=== PATIENT | male | born 1940 | race Caucasian/White ===

== ENCOUNTER 2017-03-20 01:52 | Inpatient (IN) | payer OTHER, MEDICARE ==
[~2017-03-20] VITALS: Ht 165.1 cm; Wt 83.9 kg
[~2017-03-20 01:52] MED LIST: AMLODIPINE BESYL5 M1 PO; ASPIRIN EC81 M1 PO
--- NOTE | 2017-03-20 09:01 | RADIOLOGY REPORT ---
EXAMINATION: XR LUMBAR SPINE CLINICAL INFORMATION: T10-T12 laminectomy and fusion. L4-L5 laminectomy. COMPARISON: CT images of lumbar spine, 02/07/2017 TECHNIQUE: Intraoperative crosstable lateral radiograph of the lumbar spine was obtained. FINDINGS: Multilevel degenerative disc disease of the lumbar spine. There is minimal degenerative retrolisthesis of L3 on L4. The vertebral body heights are generally well preserved. [place] are positioned posterior to the spinous processes of L1 and L4. IMPRESSION: Intraoperative lateral radiograph of lumbar spine shows needles marking the L1 and L4 spinous processes.
--- NOTE | 2017-03-20 09:45 | RADIOLOGY REPORT ---
EXAMINATION: XR LUMBAR SPINE CLINICAL INFORMATION: T10-T12 laminectomy and fusion. L4-L5 laminectomy. COMPARISON: Prior intraoperative radiograph from 03/20/2017. TECHNIQUE: Single lateral crosstable radiograph of lumbar spine was obtained. FINDINGS: Multilevel degenerative disc disease of the thoracolumbar spine. Soft tissue retractor is located posterior to T10-T11, and the tip of a surgical instrument projects posterior to T12. Within the lower lumbar spine, surgical instruments appear to be directed to the L4 lamina. IMPRESSION: Intraoperative lumbar radiograph (#2 in series) was acquired during lower thoracic and lower lumbar surgery.
--- NOTE | 2017-03-20 12:53 | Operative Report ---
Operative/Inv Procedure Report Surgery Date: 03/20/17 Name of Procedure: T10 T11 T12 laminectomy, T10 through T12 posterior lateral arthrodesis utilizing autologous bone graft, T10 through T12 posterior lateral segmental titanium instrumentation utilizing connie titanium stereotactically. Pre-Operative Diagnosis: Thoracic spondylosis thoracic spondylolisthesis and spinal stenosis myelopathy Post-Operative Diagnosis: Same Estimated Blood Loss: 550cc Surgeon/Senior Qa Analyst: GRAYSON RIVERS MD and STEPHANIE ARIAS,RAJ Darby Anesthesia: general endotracheal tube Operative/Procedure Note Note: Patient was brought into the operating room and after undergoing endotracheal intubation Dolan catheterization Venodyne's were placed on both lower extremities. The patient was placed prone on a Alpesh frame with all bony prominences well-padded the back was kept flat. The back was washed with alcohol and Betadine it was prepped with Betadine solution and draped in usual sterile fashion. X-ray was used for localization. An incision was made between the T10 and T12 vertebral developed down through the length subcutaneous teeniest tissues. The paraspinal muscles were mobilized out laterally to the level of the transverse processes bilaterally. After a confirmatory x-ray the Misonix bone scalpel was utilized to perform the laminectomies. 2 troughs were drilled out on either side of T10-T11 and top of T12 lamina. The lamina were now removed upwards with no downward pressure upon the dura. The lamina were cleared of all soft tissue morcellized and later use in the arthrodesis. The procedure was performed under elective physiological monitoring and did with the polysomnography technician the room throughout the case. No downward advance in monitoring were accounted. After a wide decompression the bone was morcellized and used for the arthrodesis. The decorticated surfaces posterolaterally the bone was placed from T10 to T12. A stereotactic post was placed at the T8's spinous process and the stereotactic coordinates were now obtained utilizing the O arm. Under stereotactic guidance the pedicle screws were accessed with Connie titanium instrumentation. 0.5 mm diameter screws were utilized. A 50 mm length screws were utilized at T12, 40 mm at the 11, and 45 mm at T 10. The screws were stimulated and found to stimulate above 30 mA. Copious amounts of bacitracin irrigation were utilized. Vanco powder was placed in the wound. A round large LUCERO was placed and removed a separate stab incision laterally. The paraspinal muscles and fascia were reapproximated utilizing interrupted 0 Vicryls, everted Vicryl subcutaneous teeniest tissues jim for the skin.
--- NOTE | 2017-03-20 12:57 | Operative Report ---
Operative/Inv Procedure Report Surgery Date: 03/20/17 Name of Procedure: L2 L3 L4 L5-S1 laminectomies bilateral dat-facetectomies foraminotomies. Pre-Operative Diagnosis: Lumbar spondylosis lumbar stenosis Post-Operative Diagnosis: Same Estimated Blood Loss: 550cc Surgeon/Certification Officer: GRAYSON RIVERS MD and RAJ BROWN MD Anesthesia: general endotracheal tube Operative/Procedure Note Note: Patient was brought to the operating room and after undergoing endotracheal intubation Dolan catheterization Venodyne's were placed over both lower extremities and the patient was placed on a Alpesh frame back was kept flat all bony prominences well-padded. Please note this is the first of 2 procedures that were performed performed the same day on this patient. The patient was back was prepped with Betadine and draped in usual sterile fashion. An incision was made between the L2 and the S1 vertebral developed down through the underlying subcutaneous teeniest tissues the paraspinal muscles were mobilized out to the level of the facet joints. After confirmatory x-ray the Orabrushonix bone scalpel was utilized to drill 2 troughs on either side of the lamina removing the inferior L2 lamina L3 lamina L4 lamina and L5 lamina completely as well as the top of the S1 lamina. The lamina was removed bilaterally such that dat- facetectomies were performed as well as the foramina were now undermined performed at all levels laterally. Copious amounts of irrigation were used. A drain was placed and removed a separate stab incision superiorly. The paraspinal muscles were reapproximated using interrupted 0 Vicryls, for the muscle and fascia Oh subcutaneous teeniest tissues and jim for the skin. The patient was then to proceed with the second procedure the thoracic decompression and fusion with fibular dictating a separate note.
--- NOTE | 2017-03-20 13:22 | Operative Report ---
Operative/Inv Procedure Report Surgery Date: 03/20/17 Name of Procedure: 1. Decompressive lumbar laminectomy L2-S1, bilateral multilevel foraminotomies L2-3, L3 4, L4 5, L5-S1 Pre-Operative Diagnosis: 1. L2-S1 lumbar spinal stenosis with claudication Post-Operative Diagnosis: Same Estimated Blood Loss: 550cc Surgeon/Quality Assurance Supervisor Final: STEPHANIE ARIAS,Bob Lew M.D. Anesthesia: general endotracheal tube Monitors: Neurophysiologic monitoring IV Fluids: 3.1 L crystalloid +305 mL Cell Saver Urine Output: 200 mL via Dolan Drains: medium LUCERO Specimens: None Complications: None Condition: Stable Operative Indication: Patient is a 76-year-old gentleman who presents with claudication of the lower extremities and increasing paresthesias. Imaging identifies multilevel severe lumbar stenosis from L2 to S1 secondary to hypertrophic facet and ligamentous changes and broad posterior disc osteophyte complexes at each level. He failed conservative treatment and now presents for surgical decompression. Operative/Procedure Note Note: Patient was taken the operating room. After appropriate patient identification, neurophysiologic monitoring leads were placed and baseline recordings were obtained. Patient underwent the smooth induction of general endotracheal anesthesia without incident. A Dolan catheter was sterilely inserted. DVT prophylaxis utilized throughout the case. Patient was given 2 g of IV Preoperative Prophylaxis. His and Lines Secured Patient Was Carefully Turned Prone on the Alpesh Frame Taking Care to Ensure That All Pressure Points Were Well-Padded. Lumbar Region Was Widely Prepped and Draped Usual Sterile Fashion Using Povidone Iodine Solution. A Vertical Midline Skin Incision Was Marked and Infiltrated with Local Anesthetic. A Lateral Lumbar X-Ray Obtained to Confirm levels. Skin incision was made with a 10 blade knife from L2 to the sacrum in the midline. The Bovie was used to divide the subcutaneous tissue. The lumbodorsal fascia was incised with the Bovie and a subperiosteal dissection lumbar paravertebral muscles was performed bilaterally with the Bovie exposing underlying spinous processes and facet joints from L2 to the sacrum. Facets were noted to be markedly hypertrophic bilaterally at all levels. A marker was placed at L5 and intraoperative x-ray was obtained to confirm this to be the correct level. With correct levels verified, we then proceeded perform a laminectomy of the inferior half of L2, all of L3, L4, L5, and the rostral aspect of S1 using a combination of the bone scalpel and Kerrison rongeurs. Thickened ligamentum flavum was carefully stripped with Kerrison rongeurs exposing the underlying thecal sac. Medial facetectomies were completed bilaterally at each level and foraminotomies were performed with Kerrisons until the exiting roots were well decompressed at L2-3, L3 4, L4 5, and L5-S1 bilaterally. The thecal sac was nicely decompressed throughout. The wound was copiously irrigated. Meticulous hemostasis was achieved using FloSeal in the epidural space and wax on the cut bone surfaces. 1 g of IV vancomycin was placed over the cut muscle and soft tissue surfaces. 10 mL of long-acting local anesthetic was infiltrated into the paraspinal muscle did the dural sac was gently covered with thrombin-soaked Gelfoam and we began wound closure. A medium LUCERO drain was placed into the wound and secured to the skin with a 2-0 nylon suture. The deep muscle was reapproximated with interrupted 0 Vicryl suture. The lumbodorsal fascia was reapproximated interrupted 0 Vicryl suture. The subcutaneous tissue was closed in layers with interrupted 2-0 Vicryl suture and the skin was closed with jim. The was cleaned and dried. Bacitracin and a sterile occlusive dressing was placed. Patient remained neurophysiologic least stable throughout the case. Findings: Tight stenosis L2-S1 Discharge Disposition: PACU
--- NOTE | 2017-03-20 13:31 | Operative Report ---
Operative/Inv Procedure Report Surgery Date: 03/20/17 Name of Procedure: T10-T12 decompressive thoracic laminectomy and posterior lateral arthrodesis with Connie pedicle screws and rods, autograft, bone marrow aspirate through distinct surgical incision Use of O arm navigation Pre-Operative Diagnosis: T10-T12 spinal stenosis with myelopathy, T11 12 spondylolisthesis Post-Operative Diagnosis: Same Estimated Blood Loss: 300cc Surgeon/Summer Counselor: STEPHANIE ARIAS,Bob Lew MD Anesthesia: general endotracheal tube Monitors: Neurophysiologic monitoring IV Fluids: Replacement crystalloid Implants: [place] Urine Output: Via Dolan Drains: Medium LUCERO Complications: None Condition: Stable Operative Indication: Patient is a 76-year-old gentleman who presents with thoracic myelopathy. He is noted to have a high-grade stenosis from T10 to T12 with focal abnormal T2 signal in the cord at T11-T12 where he is also noted to have a degenerative spondylolisthesis. I increasing paresthesias to the lower extremities and difficulty ambulating and now presents for surgical decompression and instrumented stabilization. Operative/Procedure Note Note: Patient was taken to the operating room. After appropriate patient identification, neurophysiologic monitoring leads were placed and baseline recordings were obtained the patient then underwent the smooth induction of general endotracheal anesthesia without incident. A Dolan catheter was sterilely inserted. DVT prophylaxis was utilized throughout the case. Patient was given 2 g of IV and preoperative prophylaxis. Tubes and lines secured was carefully turned to the prone position on the Alpesh table taking care to ensure that all pressure points were well-padded. The practical lumbar spine was widely prepped and draped usual sterile fashion using povidone iodine solution. A vertical midline skin incision was marked from T10 to L1 after x- ray localization. Skin was infiltrated with local anesthetic. Skin incision was made with a 10 blade knife. Dissection was carried down through subcutaneous tissue with the Bovie. The midline fascia was incised and a subperiosteal dissection of the thoracic paravertebral muscles was performed bilaterally exposing the spinous processes lamina and the lateral mass bilaterally. A [place] was placed at the presumed level of T12 and intraoperative localizing x-ray was obtained and confirmed the correct level. With the correct level verified, we proceeded with the laminectomy from T10 to T12 using a combination of bone scalpel and Kerrison rongeurs. All bone was saved and passed to the back table for arthrodesis. Medial facetectomies were performed bilaterally. Thickened ligamentum flavum was stripped and a complete decompression of the thecal sac was accomplished. Once the decompression was completed, hemostasis is achieved. The O arm reference arc was attached to the to the 8 spinous process and the O arm was brought into play. Reference AP and lateral x-rays followed by a spin of the O arm was performed. Image acquisition was obtained and confirmed. Using O arm navigation, we then proceeded with placement of the instrumentation. Pedicle screws were placed at T10, T11, and T12 bilaterally under live navigation. Entry sites were marked with the drill. Pedicles were traversed with a gearshift, sounded with a ball-tipped probe, and screws placed without complication. 5.5 x 45 mm Connie titanium screws were placed and T10 bilaterally, 5.5 x 40 mm screws in T11, and 5.5 x 50 mm screws placed bilaterally and T12. With all screws in position, they were stimulated with thresholds greater than 35 mA at all 6 locations. A second spin of the O arm was obtained and confirmed excellent position of all of the screws. We then decorticated the lateral masses bilaterally and morcellated autograft mixed with bone marrow aspirate from the pedicle screw holes was then packed from T10 to T12 bilaterally. 60 mm titanium rods were top loaded and locking caps placed. The screws were finally tightened with an antitorque device. The wound was copiously irrigated. Hemostasis is achieved with FloSeal and bone wax. The dural sac was gently covered with thrombin-soaked Gelfoam patties. Myosin patter was placed along the cut muscle and soft tissue surfaces. Long- acting local anesthetic was placed in the muscle and we began wound closure. A medium LUCERO drain was placed in the wound and secured to the skin with a 2-0 nylon suture. Was reapproximated interrupted 0 Vicryl suture. The fascia was closed with interrupted 0 Vicryl suture and the subcutaneous tissue closed in layers with a 2-0 Vicryl suture. The skin was closed with jim. The wounds clean and dried. Bacitracin and a sterile occlusive dressing was placed. Patient was returned to the supine position, awakened, extubated and taken to PACU in stable condition. He was noted to be moving all extremities at the completion the case. All sponge, needle, and injuring counts are correct at the completion of procedure 3. Neurophysiologic monitoring was stable throughout the case.
--- NOTE | 2017-03-20 14:44 | RADIOLOGY REPORT ---
EXAMINATION: XR THORACIC SPINE CLINICAL INFORMATION: T10 - T12 laminectomy and fusion COMPARISON: CT lumbar spine, 02/07/2017 TECHNIQUE: Intraoperative frontal and lateral fluoroscopic images centered on the thoracolumbar or junction were acquired. Also, intraoperatively CT images through the thoracolumbar region were obtained. NUMBER OF SAVED FLUOROSCOPIC IMAGES AND FLUORO TIME: 2 images. 6.64 sec exposure time. DLP: 449.68 mGy-cm FINDINGS: Please refer to the operative report. Intraoperative CT images show laminectomy defects of T10, T11 and T12 with postoperative soft tissue gas and soft tissue edema posterior to the spine. IMPRESSION: Intraoperative CT and fluoroscopic imaging was utilized during T10-T12 laminectomy/fusion.
[2017-03-20 15:00] VITALS: BP 130/62
--- NOTE | 2017-03-20 15:37 | PN- Student ---
ESTRELLA BURR 03/20/17 1529: Subjective Subjective: POC: Patient comfortable, denies nausea/vomiting, SOB, chest pain, dizziness. Reports 6/10 pain in right side of his back. Objective Objective: Vitals: BP: 130/80 SpO2: 96% HR: 56 General: awake, alert, oriented Lungs: CTAB, no wheeze/rhonchi/rales, good air movement bilaterally Heart: S1 S2, RRR, no M, R, G Abdomen: soft, non-distended, non-tender Extremities: gross motor/sensory function in tact, distal pulses palpable, no peripheral edema, no calf tenderness bilaterally. LUCERO x2 - both with about 25 cc serosanguanous drainage Dressing clean/dry/intact Chantal-incisional tenderness along thoracic/lumbar spine Amb[place] in place with about 50cc clear yellow urine in bag Assessment/Plan Assessment: 76 y/o male POD #0 T10-12 laminectomy and fusion with pedicle screws and lillian allograft and L2-L5 laminectomy. PMH significant for hypertension. Recovering as expected with 6/10 pain. Plan: Diet: regular Pain: continue current pain regimen, dilaudid PRN for breakthrough DVT ppx: ALPS, subq heparin Strict I's and O's Incentive Spirometry Continue ALPS Monitor drainage output VOLODYMYR STRONG 03/20/17 1717: Objective Results Results: Microbiology 03/20 0805 URINE ROUT: Urine Culture - RECD Resident Review Statement Other Findings: Agree with above PAS note. POD0 sp T10-12 lami/fusion, L4-5 lami, with appropriate postop pain, otherwise stable. C/O incisional pain, denies leg pain. No n/v/cp/sob. some residual numbness proximal legs. AVSS, 93% on 3LNC JPx2, each with approx 75cc sanguinous drainage incision: dressing cdi, ttp at incisions. ext: + dp +pt bl, caves soft nt bl, gross sensate intact bl feet, decreased sensation proximal thighs, +dorsi/plantar flexion bl P: prn pain meds OOB as tolerated. dc ambrose in am home meds reg diet as tolerated, hl once tolerates titrate o2 will dw attending
--- NOTE | 2017-03-20 15:51 | Admission Core Measures ---
Admission Meds I reviewed the following Meds: Current Medications Sig/Alesha Start time Last Medication Dose Stop Time Status Admin Acetaminophen 650 MG Q4P PRN 03/20 1545 AC (Tylenol) Amlodipine Besylate 5 MG DAILY 03/21 1000 AC (Norvasc) Bisacodyl 10 MG DAILY PRN 03/20 1545 AC (Dulcolax Supp) Cefazolin Sodium 2,000 MG ONCE 03/20 0000 NR (Kefzol-Ancef Inj) 03/20 2359 Diazepam 5 MG Q6P PRN 03/20 1545 AC (Valium) Docusate Sodium 100 MG TID 03/20 1600 AC (Colace) Famotidine 20 MG BID 03/20 2200 AC (Pepcid) Heparin Sodium 5,000 UNIT Q8 03/21 0600 AC (Porcine) Hydromorphone HCl 2 MG Q4-6 PRN PRN 03/20 1545 AC (Dilaudid) Hydromorphone HCl 4 MG Q4-6 PRN PRN 03/20 1545 AC (Dilaudid) Hydromorphone HCl 1 MG Q4-6 PRN PRN 03/20 1530 AC (Dilaudid) Ketorolac 15 MG Q6P PRN 03/20 1530 AC Tromethamine (Toradol) Ondansetron HCl 4 MG Q6P PRN 03/20 1545 AC (Zofran) Senna 374 MG AT BEDTIME NEED.. 03/20 1545 AC (Senokot) Sodium Chloride 1,000 ML Q12H 03/20 1545 AC (Normal Saline 0.9%) 03/21 1544 Trimethobenzamide HCl 200 MG Q6P PRN 03/20 1545 AC (Tigan) Zolpidem Tartrate 2.5 MG AT BEDTIME NEED.. 03/20 1545 AC (Ambien) Acute Coronary Syndrome Inclusion Criteria ACS Diagnosis No Inpatient Core Measures LDL Reminder: If No, please order W/I first 24hr of stay Congestive Heart Failure Inclusion Criteria CHF Diagnosis No Cerebrovascular accident Inclusion Criteria CVA/TIA Diagnosis No Inpatient Core Measures Bedside Swallow Eval Reminder: If BSE failed, place ST order Antithrombotic Reminder: Order Antithrombotic Medication by end of day 2 Antithrombotic Reminder: Document Reason Antithrombotic Not ordered by end of day 2 AFIB/Flutter Reminder: If Present, add to problem list AFIB/Flutter Reminder: Order Anticoag Medication for pts with AFIB/Flutter Atherosclerosis Reminder: If Present, add to problem list LDL Reminder: If No, please order W/I first 24hr of stay PT Order Reminder: If No, please order Venous thromboembolism Inpatient Core Measures VTE Risk Factors: [facility] d/t No contraindications No VTE Pharm Prophylaxis d/t No contraindications Inclusion Criteria - Per Current guidelines, there needs to be overlap - treatment for the first 5 days of Warfarin therapy. - Parenteral Anticoagulation (IV or SC) needs to be - given along with Warfarin therapy. VTE Diagnosis No VTE Type NONE VTE Confirmed by (Test) NONE Problem List As ranked by this Provider includes Assessment & Plan 1. Back pain HOME MEDS Home Med List Amlodipine Besylate 5 MG TABLET 1 TAB PO DAILY HTN (Reported) Aspirin (Ecotrin*) 81 MG TABLET.DR 1 TAB PO DAILY PROPHO (Reported)
[2017-03-20 17:00] VITALS: BP 122/76
[2017-03-20 19:10] VITALS: BP 124/88
[2017-03-20 21:04] VITALS: BP 130/74
[2017-03-21 01:02] VITALS: BP 120/60
[2017-03-21 05:05] VITALS: BP 132/86
--- NOTE | 2017-03-21 07:04 | PN- Neurosurgical ---
Subjective Subjective: Pt doing well without complaints this am. Pain well controlled. Objective Vital Signs and I&Os Vital Signs Date Time Temp Pulse Resp B/P B/P Pulse O2 O2 Flow FiO2 Mean Ox Delivery Rate 03/21 0505 98.2 80 20 132/86 97 Nasal 2.0L Cannula 03/21 0102 98.2 82 20 120/60 97 Nasal 2.0L Cannula 03/21 0000 95 Nasal 2.0L Cannula 03/20 2153 Nasal 2.0L Cannula 03/20 2104 98.0 90 20 130/74 95 Nasal Cannula 03/20 1910 98.2 88 20 124/88 95 Nasal Cannula 03/20 1700 97.4 72 16 122/76 94 Nasal 2.0L Cannula 03/20 1600 93 Nasal 3.0L Cannula 03/20 1500 97.4 67 20 130/62 93 Nasal 3.0L Cannula Intake & Output 03/21 0800 03/21 0000 03/20 1600 03/20 0800 03/20 0000 03/19 1600 Intake Total 1120 1180 Output Total 320 680 Balance 800 500 Intake, IV 640 640 Intake, Oral 480 540 Output, 120 330 Drainage Output, Urine 200 350 Patient 83.915 kg Weight Weight Reported by Patient Measurement Method Physical Exam: Pt AF, VSS awake and alert motor exam bilat LE normal, sensory with residual numbness in ant thighs bilat, better distally inicision with 120cc in JPs overnight, dressing with min serosanguinous staining , flat using IS at bedside Current Medications: Current Medications Sig/Alesha Start time Last Medication Dose Route Stop Time Status Admin Acetaminophen 650 MG Q4P PRN 03/20 1545 AC PO Acetaminophen 1,000 MG .STK-MED ONE 03/20 704 DC IV 03/20 705 Amlodipine Besylate 5 MG DAILY 03/21 1000 AC PO Bisacodyl 10 MG DAILY PRN 03/20 1545 AC LA Cefazolin Sodium 2 GM Q8H 03/20 1700 AC 03/21 N/A 1 UNIT IV 03/23 0129 0036 Cefazolin Sodium 2,000 MG ONCE 03/20 0000 DC IV 03/20 2359 Dexamethasone 8 MG .STK-MED ONE 03/20 705 DC IM 03/20 07 Diazepam 5 MG Q6P PRN 03/20 1545 AC PO Docusate Sodium 100 MG TID 03/20 1600 AC 03/20 PO 2121 Famotidine 20 MG BID 03/20 2200 AC 03/20 PO 212 Fentanyl Citrate 250 MCG .STK-MED ONE 03/20 07 DC IM 03/20 07 Heparin Sodium 5,000 UNIT Q8 03/21 0600 AC 03/21 (Porcine) SC 0457 Hydromorphone HCl 2 MG Q4-6 PRN PRN 03/20 1545 AC PO Hydromorphone HCl 4 MG Q4-6 PRN PRN 03/20 1545 AC PO Hydromorphone HCl 1 MG Q4-6 PRN PRN 03/20 1530 AC 03/21 IV 0457 Hydromorphone HCl 2 MG .STK-MED ONE 03/20 704 DC IM 03/20 07 Ketorolac 15 MG Q6P PRN 03/20 1530 AC 03/21 Tromethamine IV 0458 Midazolam HCl 2 MG .STK-MED ONE 03/20 704 DC IM 03/20 07 Ondansetron HCl 4 MG Q6P PRN 03/20 1545 AC IV Ondansetron HCl 4 MG .STK-MED ONE 03/20 705 DC IM 03/20 07 Remifentanil 4 MG .STK-MED ONE 03/20 705 DC IV 03/20 07 Senna 374 MG AT BEDTIME NEED.. 03/20 1545 AC PO Sodium Chloride 1,000 ML Q12H 03/20 1545 AC 03/21 IV 03/21 1544 0036 Trimethobenzamide HCl 200 MG Q6P PRN 03/20 154 AC IM Zolpidem Tartrate 2.5 MG AT BEDTIME NEED.. 03/20 154 AC PO Assessment/Plan Assessment/Plan Pt POD1 s/p thoracic lami and fusion T10-12 and lumbar lami L2-S1 and doing well. Plan: -OOB with brace -cont JPs until less than 50cc per each per shift, should record each separately -cont abx until drains out -PT -ADAT -dc ambrose, BO prn -dc planning - will need STR Core Measures/Miscellaneous Venous Thromboembolism VTE Risk Factors: Age > 40 VTE Contraindications: No Contraindications VTE Diagnosis: No VTE Type: NONE VTE Confirmed by (Test): NONE Beta Tee Is Beta Tee a Home Med? No Antibiotics Is Patient on Antibiotics? 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
[2017-03-21 08:45] LABS: ABSOLUTE BASOPHIL COUNT 0 /CUMM (0.0-0.2); ABSOLUTE EOSINOPHIL COUNT 0 /CUMM (0.0-0.7); ABSOLUTE GRANULOCYTE CT 9.6 /CUMM (1.4-6.5); ABSOLUTE LYMPH COUNT 0.7 /CUMM (1.2-3.4); ABSOLUTE MONOCYTE COUNT 0.7 /CUMM (0.10-0.60); BASOPHIL % 0.1 % (0.0-2.0); EOSINOPHIL % 0 % (0-5); HEMATOCRIT 33.8 % (42-52); MEAN CORPUSCULAR HGB 28.9 PG (27.0-31.0); MEAN CORPUSCULAR HGB CONC 34.1 G/DL (33.0-37.0); MEAN CORPUSCULAR VOLUME 84.9 FL (80.0-94.0); MEAN PLATELET VOLUME 8.3 FL (7.4-10.4); PLATELET COUNT 163 /CUMM (130-400); RBC DISTRIBUTION WIDTH 14.3 % (11.5-14.5); RED BLOOD CELL CT 3.98 /CUMM (4.70-6.10); WHITE BLOOD CELL COUNT 11.1 /CUMM (4.8-10.8)
[2017-03-21 09:00] VITALS: BP 120/76
[2017-03-21 09:50] LABS: GRANULOCYTE % 87.1 % (42.2-75.2)
[2017-03-21 15:29] VITALS: BP 126/72
[2017-03-21 19:40] VITALS: BP 120/70
[2017-03-21 21:55] VITALS: BP 122/80
[2017-03-22 02:00] VITALS: BP 118/76
[2017-03-22 06:00] VITALS: BP 126/78
--- NOTE | 2017-03-22 07:46 | PN- Orthopedic ---
See Addendum Subjective Subjective: some back soreness, improved from yesterday. numbness ant thighs persists but improved. no n/v/cp/sob. +flatus, no bm. +voids. manuel diet Objective Vital Signs and I&Os Vital Signs Date Time Temp Pulse Resp B/P B/P Pulse O2 O2 Flow FiO2 Mean Ox Delivery Rate 03/22 0600 99.1 87 18 126/78 91 Room Air 03/22 0200 98.8 83 18 118/76 92 Room Air 03/21 2155 99.0 82 18 122/80 91 03/21 1940 98.5 85 18 120/70 91 / 1529 98.3 76 20 126/72 91 03/21 1454 Room Air 03/21 0900 98.0 73 16 120/76 93 Room Air 03/21 0834 98.0 73 16 120/76 Intake & Output 03/22 0800 03/22 0000 03/21 1600 03/21 0800 03/21 0000 03/20 1600 Intake Total 350 302 235 5811 1180 Output Total 1537 704 3616 320 680 Balance -705 -200 -185 800 500 Intake, IV 150 300 640 640 Intake, Oral 200 250 600 480 540 Output, 205 160 120 330 Drainage Output, Urine 850 450 925 200 350 Patient 185 lb Weight Weight Reported by Patient Measurement Method LUCERO#1: 110/8hr, 275/24hr LUCERO#2: 95/8hr, 210/24hr UO: void 450 since 6am Physical Exam: GEN: NAD CARD: s1s2 RRR PULM: CTAB ABD: soft nt back/ext: incisons cdi, JPx2 w serosang, decreased sensation bl anterior thighs, +dorsi/plantar flexion bl, +pedal pulses, calves soft nt Current Medications: Current Medications Sig/Alesha Start time Last Medication Dose Route Stop Time Status Admin Acetaminophen 650 MG Q4P PRN 03/20 1545 AC PO Amlodipine Besylate 5 MG DAILY 03/21 1000 AC 03/21 PO 0834 Bisacodyl 10 MG DAILY PRN 03/20 1545 AC CA Cefazolin Sodium 2 GM Q8H 03/20 1700 AC 03/22 N/A 1 UNIT IV 03/23 0129 0102 Diazepam 5 MG Q6P PRN 03/20 1545 AC 03/21 PO 1413 Docusate Sodium 100 MG TID 07/10 1600 AC 03/21 PO 2057 Famotidine 20 MG BID 03/20 2200 AC 03/21 PO 2057 Heparin Sodium 5,000 UNIT Q8 03/21 0600 AC 03/22 (Porcine) SC 0523 Hydromorphone HCl 2 MG Q4-6 PRN PRN 03/20 1545 AC PO Hydromorphone HCl 4 MG Q4-6 PRN PRN 03/20 1545 AC 03/22 PO 0523 Hydromorphone HCl 1 MG Q4-6 PRN PRN 03/20 1530 AC 03/21 IV 0457 Ketorolac 15 MG Q6P PRN 03/20 1530 AC 03/21 Tromethamine IV 0458 Ondansetron HCl 4 MG Q6P PRN 03/20 154 AC IV Patient Medication 1 ED .STK-MED ONE 03/21 1420 DC Teaching ED 03/21 1421 Senna 374 MG AT BEDTIME NEED.. 03/20 1545 AC PO Sodium Chloride 1,000 ML Q12H 03/20 1545 DC 03/21 IV 03/21 1544 0036 Trimethobenzamide HCl 200 MG Q6P PRN 03/20 1545 AC IM Zolpidem Tartrate 2.5 MG AT BEDTIME NEED.. 03/20 1545 AC PO Assessment/Plan Assessment/Plan A: POD2 sp T10-12 lami/fusion, L4-5 lami, stable w improving neurological fxn. P: prn po pain meds oob w brace, pt dvt ppx JPs- both still with >50 per shift, will keep in place. cont abx while drains in. dc planning will dc attending Core Measures/Miscellaneous Venous Thromboembolism VTE Risk Factors: Age > 40 VTE Contraindications: No Contraindications VTE Diagnosis: No VTE Type: NONE VTE Confirmed by (Test): NONE Beta Tee Is Beta Tee a Home Med? No Antibiotics Is Patient on Antibiotics? Yes
[2017-03-22 10:00] VITALS: BP 140/80
[2017-03-22 13:51] VITALS: BP 120/80
[2017-03-22 22:26] VITALS: BP 130/75
[2017-03-23 01:56] VITALS: BP 136/88
[2017-03-23 06:00] VITALS: BP 126/78
--- NOTE | 2017-03-23 07:35 | PN- Neurosurgical ---
Subjective Subjective: Pt doing well. Pain well controlled with dilaudid. No new complaints. Objective Vital Signs and I&Os Vital Signs Date Time Temp Pulse Resp B/P B/P Pulse O2 O2 Flow FiO2 Mean Ox Delivery Rate 03/23 0600 98.7 85 20 126/78 91 Room Air 03/23 0156 99.7 90 20 136/88 91 Room Air 03/22 2226 98.2 95 20 130/75 93 Room Air 03/22 1351 99.2 102 20 120/80 90 03/22 1000 98.7 88 20 140/80 96 03/22 0930 97.4 03/22 0830 93 Room Air 03/22 0814 70 116/66 Intake & Output 03/23 0800 03/23 0000 03/22 1600 03/22 0800 03/22 0000 03/21 1600 Intake Total 380 880 350 250 900 Output Total 919 883 2971 450 1085 Balance 260 290 -705 -200 -185 Intake, IV 100 80 150 300 Intake, Oral 280 800 200 250 600 Output, 90 205 160 Drainage Output, Urine 120 500 850 450 925 Physical Exam: Pt is AF, VSS Incision is c,d,i drains out yesterday. normal motor exam bilat LE, sensory subjectively improved per pt in LE ambulating with PT manuel po, voiding on own with min residual yest Current Medications: Current Medications Sig/Alesha Start time Last Medication Dose Route Stop Time Status Admin Acetaminophen 650 MG Q4P PRN 03/20 1545 AC PO Amlodipine Besylate 5 MG DAILY 03/21 1000 AC 03/22 PO 0814 Bisacodyl 10 MG DAILY PRN 03/20 1545 AC NC Cefazolin Sodium 2 GM Q8H 03/20 1700 DC 03/22 N/A 1 UNIT IV 03/25 0958 1650 Diazepam 5 MG Q6P PRN 03/20 1545 AC 03/21 PO 1413 Docusate Sodium 100 MG TID 03/20 1600 AC 03/22 PO 2048 Famotidine 20 MG BID 03/20 2200 AC 03/22 PO 2048 Heparin Sodium 5,000 UNIT Q8 03/21 0600 AC 03/23 (Porcine) SC 0609 Hydromorphone HCl 2 MG Q4-6 PRN PRN 03/20 1545 AC PO Hydromorphone HCl 4 MG Q4-6 PRN PRN 03/20 1545 AC 03/23 PO 0600 Hydromorphone HCl 1 MG Q4-6 PRN PRN 03/20 1530 AC 03/21 IV 0457 Ketorolac 15 MG Q6P PRN 03/20 1530 AC 03/21 Tromethamine IV 0458 Ondansetron HCl 4 MG Q6P PRN 03/20 154 AC IV Senna 374 MG AT BEDTIME NEED.. 03/20 154 AC PO Trimethobenzamide HCl 200 MG Q6P PRN 03/20 154 AC IM Zolpidem Tartrate 2.5 MG AT BEDTIME NEED.. 03/20 154 AC PO Results Last 48 Hours of Labs: Laboratory Tests 03/21 0740 Hematology CBC w Diff NO MAN DIFF REQ WBC (4.8 - 10.8 /CUMM) 11.1 H RBC (4.70 - 6.10 /CUMM) 3.98 L Hgb (14.0 - 18.0 G/DL) 11.5 L Hct (42 - 52 %) 33.8 L MCV (80.0 - 94.0 FL) 84.9 MCH (27.0 - 31.0 PG) 28.9 RDW (11.5 - 14.5 %) 14.3 Plt Count (130 - 400 /CUMM) 163 MPV (7.4 - 10.4 FL) 8.3 Gran % (42.2 - 75.2 %) 87.1 H Lymphocytes % (20.5 - 51.1 %) 6.1 L Monocytes % (1.7 - 9.3 %) 6.7 Eosinophils % (0 - 5 %) 0 Basophils % (0.0 - 2.0 %) 0.1 Absolute Granulocytes (1.4 - 6.5 /CUMM) 9.6 H Absolute Lymphocytes (1.2 - 3.4 /CUMM) 0.7 L Absolute Monocytes (0.10 - 0.60 /CUMM) 0.7 H Absolute Eosinophils (0.0 - 0.7 /CUMM) 0 Absolute Basophils (0.0 - 0.2 /CUMM) 0 PUBS MCHC (33.0 - 37.0 G/DL) 34.1 Assessment/Plan Assessment/Plan Pt POD3 s/p thoracic and lumbar decompressions with T10-12 fusion and doing well. Neurologically stable with improved LE sensation. Plan: -to STR today -fu with me 2 weeks for wound check and dc jim -brace when OOB -cover incisions for showers, no submerging in standing water for 6 weeks -no lifting more than 5 lbs, avoid bending, twisting, pushing, pulling Core Measures/Miscellaneous Venous Thromboembolism VTE Risk Factors: Age > 40 VTE Contraindications: No Contraindications VTE Diagnosis: No VTE Type: NONE VTE Confirmed by (Test): NONE Beta Tee Is Beta Tee a Home Med? No Antibiotics Is Patient on Antibiotics? Yes Attending MD Review Statement Attending Statement Attending MD Statement: examined this patient, discuss w/resident/PA/WINDING OPERATOR, discussed w/nursing
[2017-03-23] MEDS ORDERED: DOCUSATE SODIU100 M3 PO (07:49)
[2017-03-23] MEDS ORDERED: VALIUM10 M1 PO (07:49)
[2017-03-23] MEDS ORDERED: HYDROMORPHONE HC2 M1 PO (07:49)
--- NOTE | 2017-03-23 07:53 | Patient Discharge Instructions ---
Discharge Instructions General Discharge Information You were seen/treated for: back surgery You had these procedures: s/p T10-T12 laminectomy/fusion, L4-5 laminectomy Watch for these problems: fever >101.5, nausea, vomiting, pain not controlled with medication Call Surgeon to remove: Reggie Do not soak the wound: Yes Special Instructions: Please wear brace when OOB Cover incisions for showers, no submerging in standing water for 6 weeks No lifting more than 5 lbs, avoid bending, twisting, pushing, pulling Please hold aspirin for 1 more week, you may restart in 1 week Diet Continue normal diet: Yes Recommended Diet: Regular Activity Full Activity/No Limits: No Activity Self Limited: Yes (per physical therapy ) Pounds, do NOT lift more than: 5 Additional ACTIVITY Info: brace when out of bed No lifting more than 5 lbs, avoid bending, twisting, pushing, pulling Acute Coronary Syndrome Inclusion Criteria At DC or during hospital stay patient has or had the following: ACS DIAGNOSIS No Discharge Core Measures Meds if any: Prescribed or Continued at Discharge Meds if any: NOT Prescribed or Continued at Discharge Congestive Heart Failure Inclusion Criteria At DC or during hospital stay patient has or had the following: CHF DIAGNOSIS No Discharge Core Measures Meds if any: Prescribed or Continued at Discharge Meds if any: NOT Prescribed or Continued at Discharge Cerebrovascular accident Inclusion Criteria At DC or during hospital stay patient has or had the following: CVA/TIA Diagnosis No Discharge Core Measures Meds if any: Prescribed or Continued at Discharge Meds if any: NOT Prescribed or Continued at Discharge Venous thromboembolism Inclusion Criteria VTE Diagnosis No VTE Type NONE VTE Confirmed by (Test) NONE Discharge Core Measures - Per Current guidelines, there needs to be overlap - treatment for the first 5 days of Warfarin therapy. - If discharged on Warfarin prior to 5 days of - overlap therapy, the patient will need to be - assessed for post discharge needs including - *Post discharge parental anticoagulation - *Warfarin and/or parental anticoagulation education - *Follow up date to check INR post discharge At least 5 days overlap therapy as Inpatient No Meds if any: Prescribed or Continued at Discharge Note: Overlap Therapy is Warfarin and Anticoagulant Meds if any: NOT Prescribed or Continued at Discharge
--- NOTE | 2017-03-23 07:56 | Surgical Discharge Summary ---
Visit Information Visit Dates Admission Date: 03/20/17 Discharge Date: 03/23/2017 History of Present Illness Chief Complaint: back pain Medical History Blood Transfusion Hx: No Neurological: NONE EENT: NONE Cardiovascular: hypertension Respiratory: NONE Gastrointestinal: NONE Hepatic: NONE Renal: NONE Musculoskeletal: degen joint disease Psychiatric: NONE Endocrine: NONE Blood Disorders: NONE Cancer(s): NONE KINDERGARTNER/Reproductive: NONE History of MRSA: No History of VRE: No History of CDIFF: No Isolation History: Standard Surgical History Pertinent Surgical History: BILATERAL KNEE REPLACEMEN Psychosocial History Where Do You Live? Home Who Do You Live With? Spouse What is Your Primary Language? Turkish Review of Systems: Refer to [facility] Hospital Course Course Attending Physician: STEPHANIE ARIAS,RAJ Darby Primary Care Physician: ILSA CUELLO MD Hospital Course: This is a 76 year old male admitted to [facility] for scheduled surgery T10-T12 laminectomy and fusion, L4-L5 laminectomy on 03/20/2017. His postoperative course was uneventful. He remained admitted for pain control and physical therapy evaluation. His LUCERO drains were removed on postoperative day 2 without incident. He is tolerating a regular diet, voiding spontaneously, pain well controlled. PT has cleared him for discharge. Allergies: Coded Allergies: No Known Allergies (03/17/17) Significant Procedures: T10-T12 laminectomy and fusion, L4-L5 laminectomy Disposition Summary Disposition Principal Diagnosis: s/p T10-12 laminectomy/fusion, and L4-L5 laminectomy Additional Diagnosis: none Discharge Disposition: rehab Discharge Instructions General Discharge Information Code Status: Full Code Patient's Diet: Regular Patient's Activity: As tolerated, out of bed with brace Follow-Up Instructions/Appts: Follow up with Dr. Weiner in 2 weeks Medications at Discharge Discharge Medications: Stop taking the following medications: Aspirin (Ecotrin*) 81 MG TABLET. ORAL DAILY Continue taking these medications: Amlodipine Besylate (Amlodipine Besylate) 5 MG TABLET 1 Tablet ORAL DAILY Comments: Last Taken:03/23/17 Time:9:50 AM Start taking the following new medications: Hydromorphone HCl (Hydromorphone HCl) 2 MG TABLET 2-4 Milligram ORAL EVERY 4-6 HOURS NEEDED as needed for PAIN Qty = 1 No Refills Comments: Last Taken:03/23/17 Time:9:54 AM Diazepam (Valium) 10 MG TABLET 5 Milligram ORAL EVERY SIX HOURS NEEDED as needed for SPASMS Qty = 1 No Refills Comments: Last Taken:03/23/17 Time:14:13 PM Docusate Sodium (Docusate Sodium) 100 MG CAPSULE 100 Milligram ORAL THREE TIMES DAILY Qty = 1 No Refills Instructions: while on narcotics Comments: Last Taken:03/23/17 Time:9:48 AM Copies To: RAJ WEINER MD
[2017-03-23 10:00] VITALS: BP 130/80
[2017-03-23 12:51] VITALS: BP 130/80
== END 2017-03-23 13:32 | DRG 460 ==
LOC: SDA 01:52 → 2NA 01:52 → ENRESERV 13:59 → ENTRNSPT 14:23 → EDTRNSPT 14:29 → EDTRNSPTSTS 14:29 → CMPTRNSPT 14:44 → 2NA 14:45 → ENPENDDIS 03-23 08:21 → 2NA 03-23 13:32
PROVIDERS: Physician Assistant Surgical; ADMIT Neurological Surgery
PROC: 0RG7071 Fusion of 2 to 7 Thoracic Vertebral Joints with Autologous Tissue Substitute, Posterior Approach, Posterior Column, Open Approach (ICD-10-PCS; principal; 2017-03-20)
PROC: 01NB0ZZ Release Lumbar Nerve, Open Approach (ICD-10-PCS; 2017-03-20)
PROC: 01NR0ZZ Release Sacral Nerve, Open Approach (ICD-10-PCS; 2017-03-20)
PROC: 4A11X4G Monitoring of Peripheral Nervous Electrical Activity, Intraoperative, External Approach (ICD-10-PCS; 2017-03-20)
DX: M48.05 Spinal stenosis, thoracolumbar region (principal); M47.14 Other spondylosis with myelopathy, thoracic region; I10 Essential (primary) hypertension; M19.90 Unspecified osteoarthritis, unspecified site; Z96.653 Presence of artificial knee joint, bilateral; M43.14 Spondylolisthesis, thoracic region; M47.9 Spondylosis, unspecified
CPT/HCPCS: 2NAP; 36415; 72020; 72070; 87086; 97110-GO; 97116-GO; 97161-GP; 97530-GO; C9290; J0131; J0690; J1100; J1644; J2405; J3250; J3370